=== PATIENT | female | born 1935 | race Caucasian/White ===

== ENCOUNTER 2016-10-23 11:25 | Emergency (ER) | payer MEDICARE, OTHER ==
[2016-10-23] MEDS ORDERED: HYDROmorphone 1 MG/ML Syringe IVPUSH ONE (11:43)
[2016-10-23] MEDS ORDERED: Ondansetron 4 MG/2 ML SDV IVPUSH ONE (11:43)
--- NOTE | 2016-10-23 12:10 | EDM.PDOC ---
ED HPI GENERAL MEDICAL PROBLEM - General Chief Complaint: Lower Extremity Injury/Pain Stated Complaint: ER Time Seen by Provider: 10/23/16 11:32 Source of Information: Reports: Patient History Limitations: Reports: No Limitations - History of Present Illness INITIAL COMMENTS - FREE TEXT/NARRATIVE: Patient fell off a 3 step landing in her garage. She denies hitting her head, no LOC. She has severe left hip pain. No shortening or external rotation. She was not found for approximately 30 minutes. No other complaints. Onset: Today, Sudden Onset Date: 10/23/16 Onset Time: 11:30 Location: Reports: Lower Extremity, Left Quality: Reports: Ache Severity: Moderate Improves with: Reports: Cold Therapy, Rest Worsens with: Reports: Movement Associated Symptoms: Reports: No Other Symptoms - Related Data Allergies Allergy/AdvReac Type Severity Reaction Status Date / Time infliximab [From Remicade] Allergy Anaphylactic Verified 10/23/16 12:17 Shock minocycline Allergy Rash Verified 10/23/16 12:17 morphine AdvReac Nausea Verified 10/23/16 12:17 Home Meds: Home Meds Carvedilol [Coreg] 1 tab PO BIDMEALS 09/03/15 [History] Cholecalciferol (Vitamin D3) [Vitamin D3] 2 tab PO DAILY 09/03/15 [History] Clopidogrel Bisulfate [Clopidogrel] 1 tab PO DAILY 09/03/15 [History] Losartan Potassium [Cozaar] 1 tab PO DAILY 09/03/15 [History] Methotrexate Sodium [Methotrexate] 4 tab PO WEEKLY 09/03/15 [History] Pravastatin [Pravachol] 1 tab PO BEDTIME 09/03/15 [History] Sennosides [Senna] 2 tab PO BEDTIME PRN 09/03/15 [History] Zoledronic Acid in Water [Reclast] 5 mg IV ASDIRECTED 09/03/15 [History] amLODIPine [Norvasc] 1 tab PO DAILY 09/03/15 [History] traZODone 0.5 tab PO BEDTIME 09/03/15 [History] Calcium Carbonate 500 mg PO BIDMEALS 10/06/15 [History] Cyanocobalamin (Vitamin B-12) [Cyanocobalamin Injection] 1,000 mcg IM ASDIRECTED 10/06/15 [History] LORazepam [Ativan] 0.5 mg PO QID PRN 10/06/15 [History] Aspirin [Halfprin] 1 tab PO DAILY 11/20/15 [History] Folic Acid 2 mg PO DAILY 11/20/15 [History] predniSONE [Prednisone] 2.5 mg PO DAILY 11/20/15 [History] Hydrocodone/Acetaminophen [Hydrocodon-Acetaminophen 5-325] 1 each PO Q4HR PRN [History] Furosemide [Lasix] 20 mg PO DAILY 01/19/16 [History] Lactulose 20 gm PO TID 01/19/16 [History] Naloxegol Oxalate [Movantik] 12.5 mg PO DAILY 01/19/16 [History] Past Medical History HEENT History: Reports: Allergic Rhinitis Cardiovascular History: Reports: Hypertension, Other (See Below) Other Cardiovascular History: paroxysmal SVT, mitral regurgitation, aortic regurgitation Musculoskeletal History: Reports: Arthritis, Fracture, Osteoporosis, Other (See Below) Other Musculoskeletal History: stiffness of right elbow joint,shoulder pain, h/ o collarbone fx Neurological History: Reports: TIA, Other (See Below) Other Neuro History: memory loss Psychiatric History: Reports: Depression, Other (See Below) Other Psychiatric History: insomnia Endocrine/Metabolic History: Reports: Vitamin D Deficiency, Other (See Below) Other Endocrine/Metabolic History: B12 deficiency Hematologic History: Reports: B12 Deficiency Immunologic History: Reports: Immunosuppression Other Immunologic History: prednisone and methotrexate use for RA Dermatologic History: Reports: Other (See Below) Other Dermatologic History: actinic keratosis, seborrheic keratosis - Past Surgical History HEENT Surgical History: Reports: Cataract Surgery Musculoskeletal Surgical History: Reports: Knee Replacement Social & Family History - Family History Family Medical History: Noncontributory Oncologic: Reports: Colon - Tobacco Use Smoking Status *Q: Former Smoker Used Tobacco, but Quit: Yes Month Tobacco Last Used: 324 Second Hand Smoke Exposure: No - Alcohol Use Days Per Week of Alcohol Use: 1 Number of Drinks Per Day: 1 Total Drinks Per Week: 1 - Recreational Drug Use Recreational Drug Use: No Review of Systems - Review of Systems Review Of Systems: See Below Constitutional: Reports: No Symptoms Eyes: Reports: No Symptoms Ears: Reports: No Symptoms Nose: Reports: No Symptoms Mouth/Throat: Reports: No Symptoms Respiratory: Reports: No Symptoms Cardiovascular: Reports: No Symptoms GI/Abdominal: Reports: No Symptoms Genitourinary: Reports: No Symptoms Musculoskeletal: Reports: Leg Pain (left hip) Skin: Reports: No Symptoms Neurological: Reports: No Symptoms Psychiatric: Reports: No Symptoms ED EXAM, GENERAL - Physical Exam Exam: See Below Exam Limited By: No Limitations General Appearance: Alert, WD/WN, Mild Distress Eye Exam: Bilateral Eye: EOMI, PERRL Ears: Normal TMs Throat/Mouth: Normal Inspection, Normal Oropharynx, Other (dentures) Head: Atraumatic, Normocephalic Neck: Normal Inspection, Supple, Non-Tender, Full Range of Motion Respiratory/Chest: No Respiratory Distress, Lungs Clear, Normal Breath Sounds, No Accessory Muscle Use, Chest Non-Tender Cardiovascular: Normal Peripheral Pulses, Regular Rate, Rhythm, No Edema, No Murmur Peripheral Pulses: 2+: Posterior Tibial (L), Posterior Tibial (R), Dorsalis Pedis (L), Dorsalis Pedis (R) GI/Abdominal: Normal Bowel Sounds, Soft, Non-Tender Back Exam: Normal Inspection Extremities: No Pedal Edema, Normal Capillary Refill, Leg Pain, Limited Range of Motion, Other (left hip is visibly deformed). No: Normal Inspection, Normal Range of Motion Neurological: Alert, Oriented, CN II-XII Intact, Normal Cognition, Normal Reflexes, Abnormal Gait (unable to walk) Psychiatric: Normal Affect, Normal Mood Skin Exam: Warm, Dry, Intact, Normal Color Lymphatic: No Adenopathy Course - Orders/Labs/Meds Orders: Active Orders 24 hr Category Date Time Status Hip Min 1V w Pelvis Lt [CR] Stat Exams 10/23/16 11:32 Ordered Meds: Medications Discontinued Medications Generic Name Dose Route Start Last Admin Trade Name Edwin PRN Reason Stop Dose Admin Hydromorphone HCl 1 mg 10/23/16 11:43 10/23/16 11:49 Dilaudid IVPUSH 10/23/16 11:44 1 mg ONETIME ONE Administration Ondansetron HCl 4 mg 10/23/16 11:43 10/23/16 11:52 Zofran IVPUSH 10/23/16 11:44 4 mg ONETIME ONE Administration - Re-Assessments/Exams Free Text/Narrative Re-Assessment/Exam: 10/23/16 12:17 x-ray does show intertrochanteric fracture of the left femur 10/23/16 12:[address] Marquez, hospitalist at [facility]. He has accepted care with a ortho consult Departure - Departure Time of Disposition: 13:25 Disposition: DC/Tfer to Acute Hospital 02 Condition: Good Clinical Impression: Intertrochanteric fracture of left femur - Discharge Information Forms: Interfacility Transfer [facility] - My Orders Last 24 Hours: My Active Orders 10/23/16 11:32 Hip Min 1V w Pelvis Lt [CR] Stat - Assessment/Plan Last 24 Hours: My Active Orders 10/23/16 11:32 Hip Min 1V w Pelvis Lt [CR] Stat
[2016-10-23] MEDS ORDERED: Sodium Chloride 0.9% 1,000 ML IV SCH (12:45)
[2016-10-23 15:31] VITALS: BP 132/70
== END 2016-10-23 14:20 | disposition short-term general hospital (02) ==
LOC: VM.ED 11:25
DX: S72.142A Displaced intertrochanteric fracture of left femur, initial encounter for closed fracture (principal); F32.9 Major depressive disorder, single episode, unspecified; G47.00 Insomnia, unspecified; I10 Essential (primary) hypertension; M19.90 Unspecified osteoarthritis, unspecified site; Z86.73 Personal history of transient ischemic attack (TIA), and cerebral infarction without residual deficits; Z88.5 Allergy status to narcotic agent; Z79.82 Long term (current) use of aspirin; Z79.899 Other long term (current) drug therapy; Z98.49 Cataract extraction status, unspecified eye; Z96.659 Presence of unspecified artificial knee joint; Z87.891 Personal history of nicotine dependence; W10.9XXA Fall (on) (from) unspecified stairs and steps, initial encounter
CPT/HCPCS: 36415; 51702; 73501; 80053; 85025; 85610; 96361; 96374; 96375; 99285; J1170; J2405; J7030; 99284-GF